=== PATIENT | male | born 1995 | race Asian ===

== ENCOUNTER 2016-12-23 19:03 | Emergency (ER) | payer OTHER ==
[2016-12-23] MEDS ORDERED: Ibuprofen TAB* 600 MG PO ONE (20:24)
[2016-12-23 20:25] VITALS: BP 122/69
[2016-12-23] MEDS ORDERED: Fluorescein Sodium TOPICAL* 1 MG TEST OPHTHALMIC ONE (20:47)
[2016-12-23] MEDS ORDERED: Tetracaine 0.5% OPTH.SOL 4 ML* 1 DROP BTL LEFT EYE ONE (20:47)
[2016-12-23] MEDS ORDERED: Ciprofloxacin 0.3% OPTH.SOL* 2.5 ML BTL LEFT EYE ONE (20:58)
--- NOTE | 2016-12-23 21:24 | UC ---
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 HIS CONTACT LENS WAS EXPELLED FROM HIS EYE AND HE NOW HAS REDNESS AND IRRITATION AND BLURRY VISION. - History of Current Complaint Chief Complaint: UCEye Stated Complaint: EYE INJURY Time Seen by Provider: 12/23/16 20:41 Onset/Duration: Sudden Onset, Lasting Hours, Still Present Timing: Constant Severity Initially: Moderate Severity Currently: Moderate Pain Intensity: 0 Pain Scale Used: 0-10 Numeric Character: Dull Aggravating Factor(s): Nothing Alleviating Factor(s): Nothing Associated Signs And Symptoms: Positive: Drainage (Clear), Vision Impairment Left. Negative: Photophobia - Allergies/Home Medications Allergies/Adverse Reactions: Allergies Allergy/AdvReac Type Severity Reaction Status Date / Time No Known Allergies Allergy Verified 12/23/16 19:28 Home Medications: Home Medications NK [No Home Medications Reported] 12/23/16 [History Confirmed 12/23/16] PMH/Surg Hx/FS Hx/Imm Hx Previously Healthy: Yes - Surgical History Surgical History: None - Family History Known Family History: Negative: Hypertension, Diabetes - Social History Alcohol Use: None Substance Use Type: None Smoking Status (MU): Never Smoked Tobacco Review of Systems Constitutional: Negative Eyes: Blurred Vision, Drainage, Eye Redness Respiratory: Negative Cardiovascular: Negative Gastrointestinal: Negative All Other Systems Reviewed And Are Negative: Yes Physical Exam Triage Information Reviewed: Yes Appearance: Well-Appearing, No Pain Distress, Well-Nourished Vital Signs: Initial Vital Signs Temp 97 F 12/23/16 19:21 Pulse 61 12/23/16 19:21 Resp 16 12/23/16 19:21 BP 124/57 12/23/16 19:21 Vital Signs Reviewed: Yes Eyes: Positive: Conjunctiva Inflamed, Discharge - CLEAR DRAINAGE LEFT EYE, Other : - FLUORESCEIN UPTAKE LEFT CORNEA LATERALLY IN 2 SPOTS ENT: Positive: Hearing grossly normal Neck: Positive: Supple Respiratory: Positive: No respiratory distress, No accessory muscle use Cardiovascular: Positive: Pulses Normal Abdomen Description: Positive: Soft Musculoskeletal: Positive: No Edema Neurological: Positive: Alert Psychological: Positive: Age Appropriate Behavior Skin: Negative: rashes Eye Complaint Course/Dx - Differential Dx/Diagnosis Provider Diagnoses: LEFT CORNEAL ABRASION Discharge - Discharge Plan Condition: Stable Disposition: HOME Patient Education Materials: Corneal Abrasion (ED) Referrals: [facility] [Medical Doctor] - Additional Instructions: IF YOU ARE NOT SIGNIFICANTLY IMPROVED IN 2 DAYS FOLLOW-UP WITH AN SUPERVISOR [facility]. [facility] Address: [address], [place] [address] DR. DIEGO AG Address: [address], [place], [place] NO CONTACT LENSES AT ALL UNTIL YOUR SYMPTOMS ARE COMPLETELY RESOLVED.
== END 2016-12-23 21:10 | disposition home or self-care (01) ==
LOC: UCEAST 19:03
DX: S05.02XA Injury of conjunctiva and corneal abrasion without foreign body, left eye, initial encounter (principal); W22.8XXA Striking against or struck by other objects, initial encounter; Y93.B9 Activity, other involving muscle strengthening exercises; Y92.9 Unspecified place or not applicable
CPT/HCPCS: 99202; A9270-GY; G0463